=== PATIENT | male | born 1980 | race Caucasian/White ===

== ENCOUNTER 2019-05-24 02:41 | Inpatient (IN) | payer MEDICAID ==
[~2019-05-24] VITALS: Ht 177.8 cm; Wt 94.4 kg
[2019-05-24] MEDS ORDERED: SODIUM CHLORIDE 0.9% 2,000 ML IV ONE (03:30)
[2019-05-24] MEDS ORDERED: cefTRIAXone 1GM/50ML D5W 50 ML IV ONE (03:45)
[2019-05-24 03:59] LABS: Basophils # (auto) 0.1 10 ^3/uL (0-0.2); Basophils % (auto) 0.6 % (0.0-2.0); Eosinophils # (auto) 0 10 ^3/uL (0-0.8); Eosinophils % (auto) 0.2 % (0.0-7.0); Hematocrit 40.4 % (41.0-53.0); Hemoglobin 14.1 g/dL (13.5-17.5); Lymphocytes # (auto) 1.5 10 ^3/uL (0.4-5.4); Lymphocytes % (auto) 13.2 % (10.0-50.0); Mean Corpuscular Hemoglobin 30.6 pg (28.0-32.0); Mean Corpuscular Hgb Conc. 34.9 g/dL (32.0-36.0); Mean Corpuscular Volume 87.7 fL (80.0-100.0); Monocytes # (auto) 1.2 10 ^3/uL (0-1.3); Monocytes % (auto) 10.6 % (0.0-12.0); Neutrophils # (auto) 8.7 10 ^3/uL (1.6-8.6); Neutrophils % (auto) 75.4 % (37.0-80.0); Nucleated Red Blood Cells % 0.1 %; Platelet Count (auto) 358 10^3/uL (140-450); Red Blood Cells 4.61 10^6/uL (4.5-5.90); Red Cell Distribution Width 12.3 % (11.8-14.3); White Blood Cell 11.6 10^3/uL (4.4-10.8)
[2019-05-24 04:14] LABS: Urine Bacteria NONE SEEN /hpf (None Seen); Urine Blood Negative /uL (Negative); Urine Hyaline Cast MANY /lpf (0 - 2); Urine Mucus MODERATE (None Seen); Urine Specific Gravity 1.026 (1.001-1.035); Urine WBC 17 /hpf (0 - 3); Urine WBC Clumps PRESENT /hpf (None Seen)
[2019-05-24 04:15] LABS: Albumin 3.7 g/dL (3.4-5.0); Calcium 9.1 mg/dL (8.5-10.1); Potassium 3.4 mmol/L (3.5-5.1)
[2019-05-24] MEDS ORDERED: ONDANSETRON HCL 4 MG/2 ML VIAL IV ONE (04:15)
[2019-05-24 04:19] LABS: BUN/Creatinine Ratio 14.1; Bilirubin, Total 1.1 mg/dL (0.2-1.0); Total Protein 8.3 g/dL (6.4-8.2)
[2019-05-24 04:22] LABS: Alcohol, Urine < 3.0 mg/dL (0-5); Amphetamine Screen, Urine POSITIVE (NEGATIVE); Barbiturate Scree,Urine NEGATIVE (NEGATIVE); Benzodiazephine Screen, Urine NEGATIVE (NEGATIVE); Cannabinoid Screen, Urine POSITIVE (NEGATIVE); Cocaine Screen, Urine NEGATIVE (NEGATIVE); Opiate Scree,Urine POSITIVE (NEGATIVE); Phencyclidine Screen, Urine NEGATIVE (NEGATIVE)
[2019-05-24] MEDS ORDERED: VANCOMYCIN 1GM/250ML 250 ML IV ONE (07:15)
[2019-05-24] MEDS ORDERED: ACETAMINOPHEN 325 MG TAB PO PRN (07:45)
[2019-05-24] MEDS ORDERED: HYDROcodone-ACET 5/325MG TAB PO PRN (07:45)
[2019-05-24] MEDS ORDERED: ONDANSETRON HCL 4 MG/2 ML VIAL IV PRN (07:45)
[2019-05-24] MEDS ORDERED: POTASSIUM CHL 20 Meq TABLET PO ONE ×2 (07:45→17:00)
[2019-05-24] MEDS ORDERED: TEMAZEPAM 15 MG CAP PO PRN (07:45)
[2019-05-24] MEDS: SODIUM CHLORIDE 0.9% 1,000 ML IV SCH ×2 (07:49→21:30)
[2019-05-24] MEDS: cefTRIAXone 1GM/50ML D5W 50 ML IV SCH (09:13)
[2019-05-24] MEDS: PANTOPRAZOLE 40 MG TAB PO SCH (09:53)
--- NOTE | 2019-05-24 12:05 | NUR ---
MED/SURG admit from ER [facility] GALINDO admitted to MED/SURG unit after SBAR received. Patient oriented to Airam Lal, primary RN, unit, room, bed, and unit policies regarding patient care and visiting hours. Patient weighed by bedscale and encouraged to call if they need something. All questions and concerns addressed, patient verbalized understanding. Note:
[2019-05-24 12:23] VITALS: BP 117/63
[2019-05-24] MEDS: CLINDAMYCIN 600MG IV 50 ML IV SCH ×2 (14:05→21:54)
--- NOTE | 2019-05-24 14:26 | NUR ---
PAGED DR. MTZ.
[2019-05-24 14:33] VITALS: BP 117/63
[2019-05-24 17:17] VITALS: BP 104/71
--- NOTE | 2019-05-24 19:15 | NUR ---
Opening Shift Note Received report from Stephanie TAYLOR. Assumed care of patient, awake and alert. No S/S of distress/SOB or pain. Instructed on POC and to call for assist PRN, will continue to monitor for changes Q1hr and PRN.
[2019-05-24 22:00] VITALS: BP 100/55
[2019-05-24] MEDS ORDERED: METHADONE HCL 10 MG TAB PO SCH (22:00)
[2019-05-25 05:00] VITALS: BP 124/59
[2019-05-25] MEDS: CLINDAMYCIN 600MG IV 50 ML IV SCH ×2 (05:55→14:00)
[2019-05-25 06:13] LABS: Basophils # (auto) 0 10 ^3/uL (0-0.2); Basophils % (auto) 0.3 % (0.0-2.0); Eosinophils # (auto) 0.1 10 ^3/uL (0-0.8); Hematocrit 33.7 % (41.0-53.0); Hemoglobin 11.9 g/dL (13.5-17.5); Lymphocytes # (auto) 0.9 10 ^3/uL (0.4-5.4); Lymphocytes % (auto) 16.6 % (10.0-50.0); Mean Corpuscular Hemoglobin 31.7 pg (28.0-32.0); Mean Corpuscular Hgb Conc. 35.3 g/dL (32.0-36.0); Mean Corpuscular Volume 89.8 fL (80.0-100.0); Monocytes # (auto) 0.5 10 ^3/uL (0-1.3); Monocytes % (auto) 9.5 % (0.0-12.0); Neutrophils # (auto) 3.8 10 ^3/uL (1.6-8.6); Neutrophils % (auto) 71.6 % (37.0-80.0); Nucleated Red Blood Cells % 0.1 %; Platelet Count (auto) 223 10^3/uL (140-450); Red Blood Cells 3.75 10^6/uL (4.5-5.90); Red Cell Distribution Width 12.4 % (11.8-14.3); White Blood Cell 5.3 10^3/uL (4.4-10.8)
[2019-05-25 06:31] LABS: BUN/Creatinine Ratio 16.3; Calcium 8.2 mg/dL (8.5-10.1); Potassium 4.1 mmol/L (3.5-5.1)
--- NOTE | 2019-05-25 07:50 | NUR ---
Patient in bed, asleep, no acute distress noted.
[2019-05-25 09:00] VITALS: BP 113/67
--- NOTE | 2019-05-25 10:40 | NUR ---
Woke up the patient. Patient asked for Methadone. Explained to patient there's no order for Methadone at this time, waiting for the the doctor to come over to see him. Patient eating breakfast.
[2019-05-25] MEDS: PANTOPRAZOLE 40 MG TAB PO SCH (10:44)
[2019-05-25] MEDS: cefTRIAXone 1GM/50ML D5W 50 ML IV SCH (10:44)
[2019-05-25] MEDS: SODIUM CHLORIDE 0.9% 1,000 ML IV SCH (10:50)
--- NOTE | 2019-05-25 11:00 | NUR ---
Dr. Leo came over. said she cannot prescribe Methadone as per Pharmacy.
--- NOTE | 2019-05-25 11:50 | NUR ---
Photos taken of the right leg, blister noted on the left upper side, scabs and scratch slick noted on the lower side of the leg and foot. Wound Care forms placed on the Wound care tray. Camera returned to central unit [facility].
--- NOTE | 2019-05-25 12:00 | NUR ---
Called the Pharmacy that I returned the camera at [facility] but still grayed out.
[2019-05-25 13:00] VITALS: BP 114/74
--- NOTE | 2019-05-25 16:17 | NUR ---
Patient insisted to leave the hospital against medical advice. Risks and benefits explained, patient insisted to leave AMA. IV line removed, IV catheter intact, pressure dressing applied. Patient signed the AMA form. Paged Dr. Leo.
--- NOTE | 2019-05-25 16:19 | NUR ---
Dr. Leo called back. made aware that patient left against medical advice. Patient signed the AMA form to leave the hospital.
--- NOTE | 2019-05-25 16:20 | NUR ---
AMA Note GALINDOERA states he wants to leave the hospital Against Medical Advice (AMA). Patient encouraged to stay for further treatment/stabilization. NISA MTZ MD notified of patient's wishes. Patient advised of the risks and benefits of leaving AMA. Patient verbalized understanding. Patient encouraged to return to the ER if symptoms do not improve or worsen.
--- NOTE | 2019-05-25 16:30 | NUR ---
Accessed Pt left AMA prior to being accessed Addendum: 05/29/19 at 1407 by ART LOBO SS Amended: Links added.
== END 2019-05-25 16:20 | disposition left against medical advice (07) | DRG 720 ==
LOC: ER 02:45 → OVERFLOW 02:46 → WEST WING 10:41
PROVIDERS: ADMIT Nurse Practitioner; ATTEND Internal Medicine Nephrology
DX: A41.9 Sepsis, unspecified organism (principal); N17.9 Acute kidney failure, unspecified; N18.3 Chronic kidney disease, stage 3 (moderate); E87.1 Hypo-osmolality and hyponatremia; F15.20 Other stimulant dependence, uncomplicated; L03.115 Cellulitis of right lower limb; E87.6 Hypokalemia; I77.6 Arteritis, unspecified; Z53.29 Procedure and treatment not carried out because of patient's decision for other reasons; N39.0 Urinary tract infection, site not specified; F19.10 Other psychoactive substance abuse, uncomplicated; Z59.0 Homelessness
CPT/HCPCS: 36415; 73700; 80048; 80053; 80307; 81001; 83605; 85025; 87040; 87086; 93971; G0378; J0696; J2405; J3490

== ENCOUNTER 2022-08-19 20:54 | Emergency (ER) | payer MEDICAID | END 2022-08-19 22:41 | disposition left against medical advice (07) | LOC: ER 20:54 | DX: R22.43 Localized swelling, mass and lump, lower limb, bilateral (principal); Z53.21 Procedure and treatment not carried out due to patient leaving prior to being seen by health care provider ==